=== PATIENT | male | born 1935 | race Caucasian/White ===

== ENCOUNTER 2016-08-10 13:13 | Inpatient (IN) | payer MEDICARE, BC ==
[~2016-08-10] VITALS: Ht 190.5 cm; Wt 88.1 kg
[~2016-08-10 13:13] MED LIST: AMIO200T PO; APIX5TAB PO; ATOR20TA9 PO; ATOR40TA78 PO; FINA5TAB4 PO; HYDR-3240 PO; IBUP200C PO; METO25TA35 PO; METO25TA91 PO; MULT-658 PO; PERICOLACE PO; TERA5CAP3 PO; WARF5TAB PO; WARF5TAB7 PO-COUM
[2016-08-10] MEDS ORDERED: SODIUM CHLORIDE 0.9% 1,000 ML IV ONE (13:22)
[2016-08-10] MEDS ORDERED: SODIUM CHLORIDE 0.9% 1,000ML IVBOLUS ONE (13:30)
[2016-08-10] MEDS ORDERED: SODIUM CHLORIDE FLUSH 10ML SYR IVF ONE (13:30)
[2016-08-10 14:03] LABS: RAPID INFLUENZA A POSITIVE (Negative); RAPID INFLUENZA B Negative (Negative)
[2016-08-10 14:12] LABS: ASPARTATE AMINO TRANSFERASE 26 U/L (15-37); BLOOD UREA NITROGEN 14 mg/dL (7-18)
[2016-08-10 14:18] LABS: IS PT STATUS REG ER OR PRE ER? YES
[2016-08-10] MEDS ORDERED: DOCUSATE 100 MG CAPSULE PO PRN (17:30)
[2016-08-10] MEDS ORDERED: POLYETHYLENE GLYCOL 17 GM PACKET PO PRN (17:30)
[2016-08-10] MEDS ORDERED: ONDANSETRON 2MG/ML, 2ML IVP PRN (17:30)
[2016-08-10] MEDS ORDERED: BISACODYL 10 MG SUPP PR PRN (17:30)
[2016-08-10] MEDS ORDERED: ONDANSETRON ODT 4 MG PO PRN (17:30)
[2016-08-10 18:01] VITALS: BP 153/78
[2016-08-10] MEDS: HEPARIN 5,000 UNITS/ML, 1ML SQ SCH (18:28)
[2016-08-10] MEDS: ACETAMINOPHEN 325 MG TABLET PO PRN (18:28)
[2016-08-10 18:48] VITALS: BP 149/79
[2016-08-10] MEDS: POTASSIUM CHLORIDE 10 MEQ in SODIUM CHLORIDE 0.9% 1,000 ML IV SCH (20:18)
[2016-08-10] MEDS: FINASTERIDE 5 MG TABLET PO SCH (20:18)
[2016-08-10] MEDS: TERAZOSIN 5MG CAPSULE PO SCH (20:19)
[2016-08-10] MEDS: METOPROLOL TARTRATE 25 MG TABLET PO SCH (20:19)
[2016-08-10] MEDS: ATORVASTATIN 20 MG TABLET PO SCH (20:19)
[2016-08-11 01:38] VITALS: BP 125/71
[2016-08-11] MEDS: HEPARIN 5,000 UNITS/ML, 1ML SQ SCH ×3 (01:42→18:08)
[2016-08-11 05:41] LABS: BLOOD UREA NITROGEN 15 mg/dL (7-18)
[2016-08-11] MEDS: POTASSIUM CHLORIDE 10 MEQ in SODIUM CHLORIDE 0.9% 1,000 ML IV SCH ×2 (06:25→20:22)
[2016-08-11] MEDS: ACETAMINOPHEN 325 MG TABLET PO PRN ×3 (06:30→15:59)
[2016-08-11 07:36] VITALS: BP 133/62
[2016-08-11 09:56] VITALS: BP 105/59
[2016-08-11] MEDS: METOPROLOL TARTRATE 25 MG TABLET PO SCH ×2 (09:57→20:22)
[2016-08-11] MEDS: MULTIVITAMIN 1 TABLET PO SCH (09:58)
[2016-08-11 15:20] VITALS: BP 126/72
[2016-08-11] MEDS: CHOLECALCIFEROL 400 UNITS TABLET PO SCH ×3 (15:33→20:21)
[2016-08-11 20:17] VITALS: BP 118/69
[2016-08-11] MEDS: FINASTERIDE 5 MG TABLET PO SCH (20:21)
[2016-08-11] MEDS: ATORVASTATIN 20 MG TABLET PO SCH (20:22)
[2016-08-11] MEDS: TERAZOSIN 5MG CAPSULE PO SCH (20:22)
[2016-08-12] MEDS: HEPARIN 5,000 UNITS/ML, 1ML SQ SCH ×2 (02:04→08:43)
[2016-08-12 03:56] VITALS: BP 134/72
[2016-08-12 08:10] VITALS: BP 119/76
[2016-08-12] MEDS: METOPROLOL TARTRATE 25 MG TABLET PO SCH (08:42)
[2016-08-12] MEDS: CHOLECALCIFEROL 400 UNITS TABLET PO SCH (08:42)
[2016-08-12] MEDS: MULTIVITAMIN 1 TABLET PO SCH (08:43)
[2016-08-12] MEDS: POTASSIUM CHLORIDE 10 MEQ in SODIUM CHLORIDE 0.9% 1,000 ML IV SCH (09:42)
[2016-08-12] MEDS ORDERED: CHOL400T2 PO (11:26)
[2016-08-12 13:42] VITALS: BP 145/69
== END 2016-08-12 14:12 | disposition home or self-care (01) | DRG 194 ==
LOC: ED 14:24 → EDIP 15:51 → 4NOR 17:52
PROVIDERS: ADMIT Internal Medicine; ATTEND Internal Medicine
PROC: 0T9B70Z Drainage of Bladder with Drainage Device, Via Natural or Artificial Opening (ICD-10-PCS; principal; 2016-08-10)
DX: J09.X2 Influenza due to identified novel influenza A virus with other respiratory manifestations (principal); D68.69 Other thrombophilia; E87.1 Hypo-osmolality and hyponatremia; R62.7 Adult failure to thrive; N18.2 Chronic kidney disease, stage 2 (mild); I12.9 Hypertensive chronic kidney disease with stage 1 through stage 4 chronic kidney disease, or unspecified chronic kidney disease; E78.5 Hyperlipidemia, unspecified; J40 Bronchitis, not specified as acute or chronic; I48.91 Unspecified atrial fibrillation; N40.0 Benign prostatic hyperplasia without lower urinary tract symptoms; E55.9 Vitamin D deficiency, unspecified; E78.00 Pure hypercholesterolemia, unspecified; R09.02 Hypoxemia; Z83.3 Family history of diabetes mellitus; Z86.73 Personal history of transient ischemic attack (TIA), and cerebral infarction without residual deficits; Z87.891 Personal history of nicotine dependence
CPT/HCPCS: 36415; 71010; 80048; 80053; 81003; 82306; 83605; 84145; 84484; 85025; 87040; 87400; 93005; 99285; J1644; J3480; J7030

== ENCOUNTER 2017-08-15 13:31 | Observation (INO) | payer MEDICARE, BC ==
[~2017-08-15] VITALS: Ht 188 cm; Wt 85.2 kg
[2017-08-15] MEDS ORDERED: SODIUM CHLORIDE FLUSH 10ML SYR IVF ONE (14:00)
[2017-08-15 14:22] LABS: BASOPHILS # (AUTO) 0.04 x10^3/uL (0-0.1); BASOPHILS % (AUTO) 0 % (0-1); EOSINOPHILS # (AUTO) 0.22 x10^3/uL (0-0.4); EOSINOPHILS % (AUTO) 2 % (1-7); LYMPHOCYTES # (AUTO) 1.76 x10^3/uL (1-3.4); LYMPHOCYTES % (AUTO) 18 % (22-44); MD NO; MEAN CORPUSCULAR HEMOGLOBIN 31.3 pg (27.5-34.5); MEAN CORPUSCULAR HGB CONC 33.9 g/dL (33.2-36.2); MEAN CORPUSCULAR VOLUME 92.5 fL (81-97); MEAN PLATELET VOLUME 7.9 fL (7.4-10.4); MONOCYTES # (AUTO) 0.88 x10^3/uL (0.2-0.8); MONOCYTES % (AUTO) 9 % (2-9); NEUTROPHILS # (AUTO) 6.68 x10^3/uL (1.8-6.8); NEUTROPHILS % (AUTO) 70 % (42-75); PLATELET COUNT 199 x10^3/uL (130-400); RED BLOOD COUNT 5.23 x10^6/uL (4.38-5.82); RED CELL DISTRIBUTION WIDTH 12.9 % (9.4-14.8)
[2017-08-15 14:33] LABS: ALANINE AMINOTRANSFERASE 27 U/L (12-78); ALBUMIN 3.5 g/dL (3.4-5.0); ANION GAP 4 mmol/L (5-15); CALCIUM 8.8 mg/dL (8.5-10.1); CHLORIDE 110 mmol/L (98-107); CREATININE 1.01 mg/dL (0.7-1.3)
[2017-08-15 14:36] LABS: ALKALINE PHOSPHATASE 77 U/L (45-117); BILIRUBIN,TOTAL 1.1 mg/dL (0.2-1.0); TOTAL PROTEIN 6.8 g/dL (6.4-8.2)
[2017-08-15 14:43] LABS: INTERNATIONAL NORMALIZED RATIO 1.16 (0.93-1.1)
[2017-08-15] MEDS ORDERED: GADOBUTROL 10 MMOL/10 ML PFS ONE (15:31)
[2017-08-15] MEDS ORDERED: ACETAMINOPHEN 650 MG/20.3 ML UDC PO PRN (17:30)
[2017-08-15] MEDS ORDERED: ONDANSETRON 4 MG TABLET PO PRN (17:30)
[2017-08-15] MEDS ORDERED: LABETALOL 5MG/ML, 20ML IV PRN (17:30)
[2017-08-15] MEDS ORDERED: ONDANSETRON 2MG/ML, 2ML IVPush PRN (17:30)
[2017-08-15 18:15] VITALS: BP 147/91
[2017-08-15 19:08] VITALS: BP 148/84
[2017-08-15] MEDS ORDERED: PERICOLACE PO SCH (21:00)
[2017-08-15 21:19] VITALS: BP 138/70
[2017-08-15] MEDS: DOCUSATE 100 MG CAPSULE PO SCH (21:19)
[2017-08-15] MEDS: ATORVASTATIN 20 MG TABLET PO SCH (21:20)
[2017-08-15] MEDS: FINASTERIDE 5 MG TABLET PO SCH (21:20)
[2017-08-15] MEDS: TERAZOSIN 5MG CAPSULE PO SCH (21:20)
[2017-08-15] MEDS: METOPROLOL TARTRATE 25 MG TABLET PO SCH (21:20)
[2017-08-15 22:12] VITALS: BP 142/75
[2017-08-16 00:57] VITALS: BP 162/75
[2017-08-16 02:13] VITALS: BP 152/84
[2017-08-16 05:50] LABS: BASOPHILS # (AUTO) 0.03 x10^3/uL (0-0.1); BASOPHILS % (AUTO) 0 % (0-1); EOSINOPHILS # (AUTO) 0.31 x10^3/uL (0-0.4); EOSINOPHILS % (AUTO) 3 % (1-7); LYMPHOCYTES # (AUTO) 2.06 x10^3/uL (1-3.4); LYMPHOCYTES % (AUTO) 22 % (22-44); MD NO; MEAN CORPUSCULAR HEMOGLOBIN 31.3 pg (27.5-34.5); MEAN CORPUSCULAR HGB CONC 33.8 g/dL (33.2-36.2); MEAN CORPUSCULAR VOLUME 92.8 fL (81-97); MEAN PLATELET VOLUME 8.3 fL (7.4-10.4); MONOCYTES # (AUTO) 0.89 x10^3/uL (0.2-0.8); MONOCYTES % (AUTO) 10 % (2-9); NEUTROPHILS # (AUTO) 6.03 x10^3/uL (1.8-6.8); NEUTROPHILS % (AUTO) 65 % (42-75); PLATELET COUNT 191 x10^3/uL (130-400); RED BLOOD COUNT 5.08 x10^6/uL (4.38-5.82); RED CELL DISTRIBUTION WIDTH 12.7 % (9.4-14.8)
[2017-08-16 05:55] LABS: ANION GAP 5 mmol/L (5-15); CALCIUM 8.6 mg/dL (8.5-10.1); CHLORIDE 108 mmol/L (98-107); CREATININE 0.92 mg/dL (0.7-1.3)
[2017-08-16 06:39] VITALS: BP 156/79
[2017-08-16] MEDS: DOCUSATE 100 MG CAPSULE PO SCH ×2 (08:09→21:00)
[2017-08-16] MEDS: METOPROLOL TARTRATE 25 MG TABLET PO SCH ×2 (08:10→21:22)
[2017-08-16] MEDS: MULTIVITAMIN 1 TABLET PO SCH (08:10)
[2017-08-16] MEDS: OXYBUTYNIN CHLORIDE 5 MG TABLET PO SCH (08:10)
[2017-08-16] MEDS ORDERED: METOPROLOL TARTRATE 25 MG TABLET PO SCH (09:00)
[2017-08-16 12:34] VITALS: BP 102/71
[2017-08-16 20:10] VITALS: BP 154/87
[2017-08-16] MEDS: ATORVASTATIN 20 MG TABLET PO SCH (21:22)
[2017-08-16] MEDS: FINASTERIDE 5 MG TABLET PO SCH (21:22)
[2017-08-16] MEDS: TERAZOSIN 5MG CAPSULE PO SCH (21:22)
[2017-08-17 02:47] VITALS: BP 130/78
[2017-08-17 06:11] LABS: BASOPHILS # (AUTO) 0.03 x10^3/uL (0-0.1); BASOPHILS % (AUTO) 0 % (0-1); EOSINOPHILS # (AUTO) 0.34 x10^3/uL (0-0.4); EOSINOPHILS % (AUTO) 3 % (1-7); LYMPHOCYTES # (AUTO) 2.02 x10^3/uL (1-3.4); LYMPHOCYTES % (AUTO) 20 % (22-44); MD NO; MEAN CORPUSCULAR HEMOGLOBIN 31.3 pg (27.5-34.5); MEAN CORPUSCULAR HGB CONC 33.6 g/dL (33.2-36.2); MEAN CORPUSCULAR VOLUME 93.1 fL (81-97); MEAN PLATELET VOLUME 7.9 fL (7.4-10.4); MONOCYTES # (AUTO) 1.01 x10^3/uL (0.2-0.8); MONOCYTES % (AUTO) 10 % (2-9); NEUTROPHILS # (AUTO) 6.91 x10^3/uL (1.8-6.8); NEUTROPHILS % (AUTO) 67 % (42-75); PLATELET COUNT 194 x10^3/uL (130-400); RED BLOOD COUNT 5.01 x10^6/uL (4.38-5.82); RED CELL DISTRIBUTION WIDTH 12.7 % (9.4-14.8)
[2017-08-17 08:00] VITALS: BP 121/74
[2017-08-17] MEDS: DOCUSATE 100 MG CAPSULE PO SCH (09:00)
[2017-08-17] MEDS: MULTIVITAMIN 1 TABLET PO SCH (09:18)
[2017-08-17] MEDS: OXYBUTYNIN CHLORIDE 5 MG TABLET PO SCH (09:18)
[2017-08-17] MEDS: METOPROLOL TARTRATE 25 MG TABLET PO SCH (09:19)
== END 2017-08-17 12:27 | disposition home or self-care (01) ==
LOC: ED 14:34 → INTOOBSV 16:49 → EDIP 16:49 → 4EST 18:10
PROVIDERS: ADMIT Internal Medicine; ATTEND Internal Medicine
DX: I61.9 Nontraumatic intracerebral hemorrhage, unspecified (principal); R53.81 Other malaise; I48.0 Paroxysmal atrial fibrillation; I12.9 Hypertensive chronic kidney disease with stage 1 through stage 4 chronic kidney disease, or unspecified chronic kidney disease; N18.9 Chronic kidney disease, unspecified; E78.5 Hyperlipidemia, unspecified; E78.00 Pure hypercholesterolemia, unspecified; N40.0 Benign prostatic hyperplasia without lower urinary tract symptoms; G45.9 Transient cerebral ischemic attack, unspecified
CPT/HCPCS: 36415; 70450; 70553; 80048; 80053; 85025; 85610; 85730; 92610; 93005; 97162; 97166; 99285; A9585; G0378; G8978; G8979; G8980

== ENCOUNTER → 2017-08-15 | Outpatient (CLI) | payer MEDICARE, BC ==
[~2017-08-15] MED LIST changes: +CHOL400T2 PO; -IBUP200C PO; +IBUP200C5 PO; +OXYB5TAB7 PO; +WARF-36 PO-COUM; -WARF5TAB7 PO-COUM
== END | disposition home or self-care (01) ==
LOC: RAD 11:29
PROVIDERS: ATTEND Internal Medicine Cardiovascular Disease
DX: I60.9 Nontraumatic subarachnoid hemorrhage, unspecified (principal); G45.9 Transient cerebral ischemic attack, unspecified
CPT/HCPCS: 70450

== ENCOUNTER → 2017-09-08 | Outpatient (CLI) | payer MEDICARE, BC | END | disposition home or self-care (01) | LOC: CARD 12:02 | PROVIDERS: ATTEND Psychiatry & Neurology Neurology | DX: I61.1 Nontraumatic intracerebral hemorrhage in hemisphere, cortical (principal) | CPT/HCPCS: 95819 ==

== ENCOUNTER → 2017-09-12 | Outpatient (CLI) | payer MEDICARE, BC | END | disposition home or self-care (01) | LOC: CFH 07:00 | PROVIDERS: ATTEND Psychiatry & Neurology Neurology | DX: I67.2 Cerebral atherosclerosis (principal); I61.1 Nontraumatic intracerebral hemorrhage in hemisphere, cortical | CPT/HCPCS: 70544 ==

== ENCOUNTER 2017-09-16 13:47 | Observation (INO) | payer MEDICARE, BC ==
[~2017-09-16] VITALS: Ht 190.5 cm; Wt 84.2 kg
[2017-09-16 14:25] LABS: BASOPHILS # (AUTO) 0.02 x10^3/uL (0-0.1); BASOPHILS % (AUTO) 0 % (0-1); EOSINOPHILS # (AUTO) 0.25 x10^3/uL (0-0.4); EOSINOPHILS % (AUTO) 3 % (1-7); LYMPHOCYTES # (AUTO) 1.56 x10^3/uL (1-3.4); LYMPHOCYTES % (AUTO) 18 % (22-44); MD NO; MEAN CORPUSCULAR HEMOGLOBIN 31.1 pg (27.5-34.5); MEAN CORPUSCULAR HGB CONC 33.9 g/dL (33.2-36.2); MEAN CORPUSCULAR VOLUME 91.6 fL (81-97); MEAN PLATELET VOLUME 7.8 fL (7.4-10.4); MONOCYTES # (AUTO) 0.71 x10^3/uL (0.2-0.8); MONOCYTES % (AUTO) 8 % (2-9); NEUTROPHILS # (AUTO) 6.32 x10^3/uL (1.8-6.8); NEUTROPHILS % (AUTO) 71 % (42-75); PLATELET COUNT 189 x10^3/uL (130-400); RED BLOOD COUNT 4.93 x10^6/uL (4.38-5.82); RED CELL DISTRIBUTION WIDTH 12.9 % (9.4-14.8)
[2017-09-16 14:35] LABS: INTERNATIONAL NORMALIZED RATIO 1.17 (0.93-1.1); PROTHROMBIN TIME 12.1 Seconds (9.6-11.5)
[2017-09-16 14:36] LABS: ALBUMIN 3.4 g/dL (3.4-5.0); ANION GAP 7 mmol/L (5-15); CALCIUM 8.5 mg/dL (8.5-10.1); CHLORIDE 108 mmol/L (98-107); CREATININE 1.03 mg/dL (0.7-1.3)
[2017-09-16 14:40] LABS: TROPONIN I < 0.015 ng/mL (0.000-0.045)
[2017-09-16] MEDS ORDERED: TERA2CAP3 PO (16:20)
[2017-09-16] MEDS ORDERED: OXYB10TA PO (16:20)
[2017-09-16] MEDS ORDERED: SERT50TA PO (16:21)
[2017-09-16 17:10] LABS: MICROSCOPIC NOT IND
[2017-09-16 18:57] VITALS: BP 168/94
[2017-09-16 20:18] VITALS: BP 161/79
[2017-09-16] MEDS: FINASTERIDE 5 MG TABLET PO SCH (20:18)
[2017-09-16] MEDS: ATORVASTATIN 80 MG TABLET PO SCH (20:18)
[2017-09-16] MEDS: OXYBUTYNIN CHLORIDE 5 MG TABLET PO SCH (20:18)
[2017-09-16] MEDS: TERAZOSIN 2MG CAPSULE PO SCH (20:19)
[2017-09-16] MEDS ORDERED: ATORVASTATIN 20 MG TABLET PO SCH (21:00)
[2017-09-17 02:43] VITALS: BP 127/79
[2017-09-17 04:40] VITALS: BP 168/94
[2017-09-17 07:00] VITALS: BP 157/80
[2017-09-17] MEDS: SERTRALINE 50MG TABLET PO SCH (09:03)
[2017-09-17] MEDS: MULTIVITAMIN 1 TABLET PO SCH (09:03)
[2017-09-17] MEDS: METOPROLOL TARTRATE 25 MG TABLET PO SCH (09:04)
[2017-09-17 15:05] VITALS: BP 156/79
[2017-09-17 20:01] VITALS: BP 155/81
[2017-09-17] MEDS: ATORVASTATIN 80 MG TABLET PO SCH (20:43)
[2017-09-17] MEDS: OXYBUTYNIN CHLORIDE 5 MG TABLET PO SCH (20:43)
[2017-09-17] MEDS: FINASTERIDE 5 MG TABLET PO SCH (20:43)
[2017-09-17] MEDS: TERAZOSIN 2MG CAPSULE PO SCH (20:44)
[2017-09-18 02:00] VITALS: BP 130/80
[2017-09-18 06:49] VITALS: BP 140/79
[2017-09-18] MEDS: METOPROLOL TARTRATE 25 MG TABLET PO SCH (07:42)
[2017-09-18] MEDS: MULTIVITAMIN 1 TABLET PO SCH (07:43)
[2017-09-18] MEDS: SERTRALINE 50MG TABLET PO SCH (07:43)
== END 2017-09-18 11:32 | disposition home or self-care (01) ==
LOC: ED 16:13 → EDIP 17:08 → 4WST 18:37 → DCLOUNGE 09-18 11:12
PROVIDERS: ADMIT Internal Medicine Pulmonary Disease; ATTEND Internal Medicine Pulmonary Disease
DX: G45.9 Transient cerebral ischemic attack, unspecified (principal); I48.0 Paroxysmal atrial fibrillation; I12.9 Hypertensive chronic kidney disease with stage 1 through stage 4 chronic kidney disease, or unspecified chronic kidney disease; N18.9 Chronic kidney disease, unspecified; E78.5 Hyperlipidemia, unspecified; N40.0 Benign prostatic hyperplasia without lower urinary tract symptoms; Z83.3 Family history of diabetes mellitus; Z86.73 Personal history of transient ischemic attack (TIA), and cerebral infarction without residual deficits; Z91.81 History of falling
CPT/HCPCS: 36415; 70450; 80048; 81003; 82040; 84484; 85025; 85610; 85730; 92507; 92523; 93005; 93306; 93880; 97162; 97165; G0378; G8978; G8979; G8980

== ENCOUNTER 2018-02-13 15:47 | Inpatient (IN) | payer MEDICARE, BC ==
[~2018-02-13] VITALS: Ht 190.5 cm; Wt 88.3 kg
[~2018-02-13 15:47] MED LIST changes: +AMATIZA PO; +DONE10TA14 PO; +IBUP-1623 PO; -IBUP200C5 PO; +OXYB10TA PO; +SERT50TA PO; +TAMS0.4C2 PO; +TERA2CAP3 PO
[2018-02-13 16:17] LABS: BASOPHILS # (AUTO) 0.06 x10^3/uL (0-0.1); BASOPHILS % (AUTO) 1 % (0-1); EOSINOPHILS # (AUTO) 0.21 x10^3/uL (0-0.4); EOSINOPHILS % (AUTO) 2 % (1-7); LYMPHOCYTES # (AUTO) 1.85 x10^3/uL (1-3.4); LYMPHOCYTES % (AUTO) 20 % (22-44); MD NO; MEAN CORPUSCULAR HEMOGLOBIN 31.8 pg (27.5-34.5); MEAN CORPUSCULAR HGB CONC 34.2 g/dL (33.2-36.2); MONOCYTES # (AUTO) 0.64 x10^3/uL (0.2-0.8); MONOCYTES % (AUTO) 7 % (2-9); NEUTROPHILS # (AUTO) 6.73 x10^3/uL (1.8-6.8); NEUTROPHILS % (AUTO) 71 % (42-75); PLATELET COUNT 192 x10^3/uL (130-400); RED BLOOD COUNT 5.09 x10^6/uL (4.38-5.82); RED CELL DISTRIBUTION WIDTH 12.9 % (9.4-14.8)
[2018-02-13 16:28] LABS: INTERNATIONAL NORMALIZED RATIO 1.17 (0.93-1.1); PROTHROMBIN TIME 12.1 Seconds (9.6-11.5)
[2018-02-13] MEDS ORDERED: LEVETIRACETAM 500 MG in SODIUM CHLORIDE 0.9% 100 ML IV ONE (17:00)
[2018-02-13] MEDS ORDERED: SODIUM CHLORIDE 0.9% 1,000 ML IV SCH (17:15)
[2018-02-13] MEDS ORDERED: BISACODYL 10 MG SUPP PR PRN (17:30)
[2018-02-13] MEDS ORDERED: POLYETHYLENE GLYCOL 17 GM PACKET PO PRN (17:30)
[2018-02-13] MEDS ORDERED: ENALAPRILAT 1.25 MG/ML, 2ML IV PRN (17:30)
[2018-02-13] MEDS ORDERED: ONDANSETRON ODT 4 MG PO PRN (17:30)
[2018-02-13] MEDS ORDERED: ONDANSETRON 2MG/ML, 2ML IVPush PRN (17:30)
[2018-02-13] MEDS ORDERED: DOCUSATE 100 MG CAPSULE PO PRN (17:30)
[2018-02-13] MEDS ORDERED: ACETAMINOPHEN 325 MG TABLET PO PRN (17:30)
[2018-02-13 18:12] LABS: TROPONIN I < 0.015 ng/mL (0.000-0.045)
[2018-02-13] MEDS ORDERED: GADOBUTROL 10 MMOL/10 ML PFS ONE (19:29)
[2018-02-13 19:43] LABS: MICROSCOPIC NOT IND
[2018-02-13 19:45] VITALS: BP 138/72
[2018-02-13 19:47] LABS: CULTURE INDICATED? NO
[2018-02-13] MEDS ORDERED: FINASTERIDE 5 MG TABLET PO SCH (21:00)
[2018-02-13] MEDS ORDERED: ATORVASTATIN 20 MG TABLET PO SCH (21:00)
[2018-02-13] MEDS ORDERED: TAMSULOSIN 0.4 MG CAP.ER.24H PO SCH (21:00)
[2018-02-13] MEDS: LEVETIRACETAM 500 MG in SODIUM CHLORIDE 0.9% 100 ML IV SCH ×2 (21:00→21:11)
[2018-02-13] MEDS: AMATIZA PO SCH (21:00)
[2018-02-13] MEDS ORDERED: TERAZOSIN 2MG CAPSULE PO SCH (21:00)
[2018-02-13] MEDS: LEVETIRACETAM 500 MG TABLET PO SCH (21:12)
[2018-02-14 02:14] VITALS: BP 128/75
[2018-02-14 04:45] LABS: BASOPHILS # (AUTO) 0.03 x10^3/uL (0-0.1); BASOPHILS % (AUTO) 0 % (0-1); EOSINOPHILS # (AUTO) 0.36 x10^3/uL (0-0.4); EOSINOPHILS % (AUTO) 4 % (1-7); LYMPHOCYTES # (AUTO) 2.01 x10^3/uL (1-3.4); LYMPHOCYTES % (AUTO) 21 % (22-44); MD NO; MEAN CORPUSCULAR HEMOGLOBIN 31.7 pg (27.5-34.5); MEAN CORPUSCULAR HGB CONC 34.3 g/dL (33.2-36.2); MEAN CORPUSCULAR VOLUME 92.2 fL (81-97); MEAN PLATELET VOLUME 8.3 fL (7.4-10.4); MONOCYTES # (AUTO) 0.97 x10^3/uL (0.2-0.8); MONOCYTES % (AUTO) 10 % (2-9); NEUTROPHILS # (AUTO) 6.06 x10^3/uL (1.8-6.8); NEUTROPHILS % (AUTO) 64 % (42-75); PLATELET COUNT 187 x10^3/uL (130-400); RED CELL DISTRIBUTION WIDTH 12.7 % (9.4-14.8)
[2018-02-14 04:59] LABS: ALBUMIN 2.8 g/dL (3.4-5.0); ANION GAP 8 mmol/L (5-15); CALCIUM 8.3 mg/dL (8.5-10.1); CHLORIDE 111 mmol/L (98-107)
[2018-02-14 05:08] LABS: ALANINE AMINOTRANSFERASE 38 U/L (12-78); ALKALINE PHOSPHATASE 83 U/L (45-117); BILIRUBIN,TOTAL 0.3 mg/dL (0.2-1.0); CHOL/HDL RATIO 2.3; CHOLESTEROL, TOTAL 79 mg/dL (140-239); CREATININE 0.94 mg/dL (0.7-1.3); HDL CHOL % 44 % (26-37); HDL CHOLESTEROL (DIRECT) 35 mg/dL (40-60); LDL CHOLESTEROL,CALCULATED 28 mg/dL (54-169); LDL/HDL RATIO 0.8 (0.5-3.0); TOTAL PROTEIN 5.5 g/dL (6.4-8.2); TRIGLYCERIDES 80 mg/dL (50-200); VLDL CHOLESTEROL 16 mg/dL (0-25)
[2018-02-14] MEDS ORDERED: METOPROLOL SUCCINATE 25 MG TAB.ER.24H PO SCH (06:00)
[2018-02-14 07:28] VITALS: BP 133/79
[2018-02-14] MEDS: AMATIZA PO SCH (08:56)
[2018-02-14] MEDS ORDERED: DONEPEZIL 10 MG TABLET PO SCH (09:00)
[2018-02-14] MEDS ORDERED: SERTRALINE 50MG TABLET PO SCH (09:00)
[2018-02-14] MEDS ORDERED: ASPIRIN 81 MG TABLET CHEW PO/NG SCH (09:00)
[2018-02-14] MEDS ORDERED: MULTIVITAMIN 1 TABLET PO SCH (09:00)
[2018-02-14] MEDS: LEVETIRACETAM 500 MG in SODIUM CHLORIDE 0.9% 100 ML IV SCH (09:11)
[2018-02-14] MEDS: LEVETIRACETAM 500 MG TABLET PO SCH (09:12)
[2018-02-14 13:07] VITALS: BP 151/84
[2018-02-14] MEDS ORDERED: LEVE500T53 PO (13:15)
[2018-02-14] MEDS ORDERED: METO25TA91 PO (13:15)
== END 2018-02-14 15:25 | disposition home or self-care (01) | DRG 92 ==
LOC: ED 16:33 → EDIP 16:34 → ED 17:11 → 4WST 17:47
PROVIDERS: ADMIT Internal Medicine; ATTEND Internal Medicine
PROC: 4A00X4Z Measurement of Central Nervous Electrical Activity, External Approach (ICD-10-PCS; principal; 2018-02-14)
DX: R47.01 Aphasia (principal); I69.351 Hemiplegia and hemiparesis following cerebral infarction affecting right dominant side; E44.1 Mild protein-calorie malnutrition; R56.9 Unspecified convulsions; G83.84 Todd's paralysis (postepileptic); N18.2 Chronic kidney disease, stage 2 (mild); N40.0 Benign prostatic hyperplasia without lower urinary tract symptoms; Z96.641 Presence of right artificial hip joint; Z91.81 History of falling; Z83.3 Family history of diabetes mellitus; Z87.891 Personal history of nicotine dependence; Z82.49 Family history of ischemic heart disease and other diseases of the circulatory system; Z79.82 Long term (current) use of aspirin; K59.00 Constipation, unspecified; I48.91 Unspecified atrial fibrillation; I34.0 Nonrheumatic mitral (valve) insufficiency; I34.1 Nonrheumatic mitral (valve) prolapse; I12.9 Hypertensive chronic kidney disease with stage 1 through stage 4 chronic kidney disease, or unspecified chronic kidney disease; E78.5 Hyperlipidemia, unspecified; Z79.899 Other long term (current) drug therapy
CPT/HCPCS: 36415; 70450; 70553; 80047; 80053; 80061; 81003; 82962; 83735; 84100; 84443; 84484; 85025; 85610; 85730; 93005; 93306; 95819; 99291; A9585; G0378; J1953; J7030

== ENCOUNTER 2018-04-01 15:16 | Inpatient (IN) | payer MEDICARE, BC ==
[~2018-04-01] VITALS: Ht 190.5 cm; Wt 88.1 kg
[~2018-04-01 15:16] MED LIST changes: +LEVE500T53 PO
[2018-04-01] MEDS ORDERED: ONDANSETRON ODT 4 MG ONE ×2 (15:30→16:38)
[2018-04-01] MEDS ORDERED: ONDANSETRON ODT 4 MG PO ONE ×2 (15:30→17:00)
[2018-04-01] MEDS ORDERED: MORPHINE SULFATE 4 MG/ML, 1ML ONE ×2 (15:30→15:45)
[2018-04-01] MEDS ORDERED: SODIUM CHLORIDE FLUSH 10ML SYR IVF ONE (15:30)
[2018-04-01] MEDS: MORPHINE SULFATE 4 MG/ML, 1ML IVPush PRN ×2 (15:34→15:48)
[2018-04-01 15:44] LABS: BASOPHILS # (AUTO) 0.07 x10^3/uL (0-0.1); BASOPHILS % (AUTO) 1 % (0-1); EOSINOPHILS # (AUTO) 0.34 x10^3/uL (0-0.4); EOSINOPHILS % (AUTO) 4 % (1-7); LYMPHOCYTES # (AUTO) 2.43 x10^3/uL (1-3.4); LYMPHOCYTES % (AUTO) 29 % (22-44); MD NO; MEAN CORPUSCULAR HEMOGLOBIN 30.9 pg (27.5-34.5); MEAN CORPUSCULAR HGB CONC 33.5 g/dL (33.2-36.2); MEAN CORPUSCULAR VOLUME 92.4 fL (81-97); MONOCYTES # (AUTO) 0.88 x10^3/uL (0.2-0.8); MONOCYTES % (AUTO) 11 % (2-9); NEUTROPHILS # (AUTO) 4.66 x10^3/uL (1.8-6.8); NEUTROPHILS % (AUTO) 56 % (42-75); PLATELET COUNT 188 x10^3/uL (130-400); RED BLOOD COUNT 5.23 x10^6/uL (4.38-5.82); RED CELL DISTRIBUTION WIDTH 12.7 % (9.4-14.8)
[2018-04-01 15:52] LABS: ALBUMIN 3.4 g/dL (3.4-5.0); ANION GAP 10 mmol/L (5-15); CALCIUM 8.9 mg/dL (8.5-10.1); CHLORIDE 106 mmol/L (98-107); CREATININE 1.07 mg/dL (0.7-1.3); INTERNATIONAL NORMALIZED RATIO 1.15 (0.93-1.1); PROTHROMBIN TIME 11.9 Seconds (9.6-11.5)
[2018-04-01] MEDS ORDERED: HYDROmorphone 4MG TABLET PO PRN (16:30)
[2018-04-01] MEDS ORDERED: HYDROmorphone 2 MG/ML, 1ML ONE ×2 (16:38→20:02)
[2018-04-01] MEDS ORDERED: HYDROmorphone 2 MG/ML, 1ML IV ONE (17:00)
[2018-04-01] MEDS ORDERED: ETOMIDATE 20 MG/10 ML ONE (17:46)
[2018-04-01] MEDS ORDERED: ETOMIDATE 20 MG/10 ML IVPush ONE (18:00)
[2018-04-01] MEDS ORDERED: HYDROmorphone 1 MG/ML, 1ML IV ONE (20:00)
[2018-04-01 20:50] VITALS: BP 138/64
[2018-04-01] MEDS ORDERED: hydrALAzine 20 MG/ML, 1ML IVPush PRN (23:00)
[2018-04-01] MEDS ORDERED: POLYETHYLENE GLYCOL 17 GM PACKET PO PRN (23:00)
[2018-04-01] MEDS ORDERED: BISACODYL 10 MG SUPP PR PRN (23:00)
[2018-04-01] MEDS ORDERED: ONDANSETRON 2MG/ML, 2ML IVPush PRN (23:00)
[2018-04-01] MEDS ORDERED: DOCUSATE 100 MG CAPSULE PO PRN (23:00)
[2018-04-01] MEDS ORDERED: LABETALOL 5MG/ML, 20ML IVPush PRN (23:00)
[2018-04-01] MEDS ORDERED: GABAPENTIN 300 MG CAPSULE PO PRN (23:00)
[2018-04-01] MEDS ORDERED: ONDANSETRON ODT 4 MG PO PRN (23:00)
[2018-04-01] MEDS ORDERED: PROMETHAZINE 25 MG/ML, 1ML IM PRN (23:00)
[2018-04-01] MEDS: morphine SULFATE 10 MG/ML, 1ML IVPush PRN (23:20)
[2018-04-01] MEDS: SODIUM CHLORIDE 0.9% 1,000 ML IV SCH (23:20)
[2018-04-01 23:27] LABS: HEMOGLOBIN A1C 6.5 % (4.2-6.3)
[2018-04-01 23:28] VITALS: BP 121/68
[2018-04-01 23:51] LABS: FREE T4 (FREE THYROXINE) 0.95 ng/dL (0.76-1.46); THYROID STIMULATING HORMONE 5.11 mIU/L (0.358-3.740)
[2018-04-01] MEDS: ATORVASTATIN 20 MG TABLET PO SCH (23:59)
[2018-04-01] MEDS: TAMSULOSIN 0.4 MG CAP.ER.24H PO SCH (23:59)
[2018-04-01] MEDS: FINASTERIDE 5 MG TABLET PO SCH (23:59)
[2018-04-01] MEDS: TERAZOSIN 2MG CAPSULE PO SCH (23:59)
[2018-04-01] MEDS: LEVETIRACETAM 500 MG TABLET PO SCH (23:59)
[2018-04-02] MEDS: morphine SULFATE 10 MG/ML, 1ML IVPush PRN ×3 (02:43→08:50)
[2018-04-02 03:06] VITALS: BP 131/74
[2018-04-02 05:31] LABS: ALANINE AMINOTRANSFERASE 35 U/L (12-78); ALBUMIN 3.3 g/dL (3.4-5.0); ANION GAP 4 mmol/L (5-15); CALCIUM 8.5 mg/dL (8.5-10.1); CHLORIDE 107 mmol/L (98-107)
[2018-04-02 05:34] LABS: ALKALINE PHOSPHATASE 82 U/L (45-117); BILIRUBIN,TOTAL 0.9 mg/dL (0.2-1.0); CHOL/HDL RATIO 2.5; CHOLESTEROL, TOTAL 108 mg/dL (140-239); HDL CHOL % 40 % (26-37); HDL CHOLESTEROL (DIRECT) 43 mg/dL (40-60); LDL CHOLESTEROL,CALCULATED 52 mg/dL (54-169); LDL/HDL RATIO 1.2 (0.5-3.0); TOTAL PROTEIN 6.1 g/dL (6.4-8.2); TRIGLYCERIDES 65 mg/dL (50-200); VLDL CHOLESTEROL 13 mg/dL (0-25)
[2018-04-02 05:40] LABS: BASOPHILS # (AUTO) 0.03 x10^3/uL (0-0.1); BASOPHILS % (AUTO) 0 % (0-1); EOSINOPHILS # (AUTO) 0.05 x10^3/uL (0-0.4); EOSINOPHILS % (AUTO) 0 % (1-7); LYMPHOCYTES # (AUTO) 1.43 x10^3/uL (1-3.4); LYMPHOCYTES % (AUTO) 12 % (22-44); MD NO; MEAN CORPUSCULAR HEMOGLOBIN 31.8 pg (27.5-34.5); MEAN CORPUSCULAR HGB CONC 34.3 g/dL (33.2-36.2); MEAN CORPUSCULAR VOLUME 92.7 fL (81-97); MEAN PLATELET VOLUME 8.2 fL (7.4-10.4); MONOCYTES # (AUTO) 1.32 x10^3/uL (0.2-0.8); MONOCYTES % (AUTO) 11 % (2-9); NEUTROPHILS # (AUTO) 9.23 x10^3/uL (1.8-6.8); NEUTROPHILS % (AUTO) 77 % (42-75); PLATELET COUNT 167 x10^3/uL (130-400); RED BLOOD COUNT 4.92 x10^6/uL (4.38-5.82)
[2018-04-02] MEDS: METOPROLOL SUCCINATE 25 MG TAB.ER.24H PO SCH (06:00)
[2018-04-02 07:25] VITALS: BP 142/73
[2018-04-02 08:18] LABS: HCT (SEDRATE) 46.4 % (39.2-51.8)
[2018-04-02] MEDS: SODIUM CHLORIDE 0.9% 1,000 ML IV SCH (08:55)
[2018-04-02] MEDS: SERTRALINE 50MG TABLET PO SCH ×2 (09:00→11:42)
[2018-04-02] MEDS: MULTIVITAMIN 1 TABLET PO SCH ×2 (09:00→11:41)
[2018-04-02] MEDS: LEVETIRACETAM 500 MG TABLET PO SCH ×2 (09:00→21:01)
[2018-04-02] MEDS: DONEPEZIL 10 MG TABLET PO SCH (09:00)
[2018-04-02 09:56] LABS: MICROSCOPIC NOT IND
[2018-04-02 10:04] LABS: CULTURE INDICATED? NO
[2018-04-02] MEDS: HYDROcodone/APAP 5/325 TABLET PO PRN (11:42)
[2018-04-02 14:13] VITALS: BP 113/64
[2018-04-02 19:00] VITALS: BP 118/65
[2018-04-02] MEDS: FINASTERIDE 5 MG TABLET PO SCH (21:00)
[2018-04-02] MEDS: ATORVASTATIN 20 MG TABLET PO SCH (21:00)
[2018-04-02] MEDS: OxyconTIN ER 10 MG TAB.ER PO SCH (21:01)
[2018-04-02] MEDS: TAMSULOSIN 0.4 MG CAP.ER.24H PO SCH (21:01)
[2018-04-02] MEDS: TERAZOSIN 2MG CAPSULE PO SCH (21:01)
[2018-04-03 02:31] VITALS: BP 147/71
[2018-04-03] MEDS: METOPROLOL SUCCINATE 25 MG TAB.ER.24H PO SCH (06:00)
[2018-04-03] MEDS ORDERED: FENTANYL PF 250 MCG/5ML ONE (06:33)
[2018-04-03] MEDS ORDERED: OXYcodone 5 MG/5 ML ORAL.SOL UDC PO PRN (07:00)
[2018-04-03] MEDS ORDERED: PROCHLORPERAZINE 5 MG/ML, 2ML IV PRN (07:00)
[2018-04-03] MEDS ORDERED: LABETALOL 5MG/ML, 20ML IV PRN (07:00)
[2018-04-03] MEDS ORDERED: MORPHINE SULFATE 4 MG/ML, 1ML IVPush PRN (07:00)
[2018-04-03] MEDS ORDERED: hydrALAzine 20 MG/ML, 1ML IV PRN (07:00)
[2018-04-03] MEDS ORDERED: ONDANSETRON 2MG/ML, 2ML IV PRN (07:00)
[2018-04-03] MEDS ORDERED: HYDROmorphone 1 MG/ML, 1ML IV PRN (07:00)
[2018-04-03] MEDS ORDERED: ONDANSETRON ODT 8 MG PO PRN (07:00)
[2018-04-03] MEDS ORDERED: ACETAMINOPHEN 325 MG TABLET PO PRN (07:00)
[2018-04-03 07:37] VITALS: BP 127/88
[2018-04-03] MEDS ORDERED: TRANEXAMIC ACID 100 MG/ML, 10ML ONE (07:56)
[2018-04-03] MEDS ORDERED: ERGOCALCIFEROL 50,000 UNIT CAPSULE PO SCH (09:30)
[2018-04-03] MEDS ORDERED: DEXAMETHASONE 4 MG/ML, 1ML ONE (09:37)
[2018-04-03] MEDS ORDERED: ROCURONIUM 10MG/ML,5ML ONE (09:37)
[2018-04-03] MEDS ORDERED: NEOSTIGMINE 1 MG/ML, 10ML ONE (09:37)
[2018-04-03] MEDS ORDERED: PROPOFOL 10 MG/ML, 20ML ONE (09:37)
[2018-04-03] MEDS ORDERED: GLYCOPYRROLATE 0.2MG/1ML, 5ML ONE (09:37)
[2018-04-03] MEDS ORDERED: SUCCINYLCHOLINE 20 MG/ML, 10ML ONE (09:37)
[2018-04-03] MEDS ORDERED: CEFAZOLIN 1,000 MG ONE (09:37)
[2018-04-03] MEDS ORDERED: ONDANSETRON 2MG/ML, 2ML ONE ×2 (09:37→16:05)
[2018-04-03] MEDS ORDERED: FENTANYL PF 100 MCG/2ML ONE (09:53)
[2018-04-03] MEDS: FENTANYL PF 100 MCG/2ML IV PRN ×3 (09:55→10:28)
[2018-04-03] MEDS ORDERED: OXYcodone 5 MG/5 ML ORAL.SOL UDC ONE (10:11)
[2018-04-03] MEDS: CEFAZOLIN 1,000 MG IM SCH ×2 (12:25→21:01)
[2018-04-03] MEDS: OxyconTIN ER 10 MG TAB.ER PO SCH ×2 (12:51→21:09)
[2018-04-03 13:30] VITALS: BP 134/73
[2018-04-03] MEDS: DONEPEZIL 10 MG TABLET PO SCH (14:12)
[2018-04-03] MEDS: LEVETIRACETAM 500 MG TABLET PO SCH ×2 (14:12→21:08)
[2018-04-03 18:39] VITALS: BP 138/74
[2018-04-03] MEDS: FINASTERIDE 5 MG TABLET PO SCH (21:08)
[2018-04-03] MEDS: TAMSULOSIN 0.4 MG CAP.ER.24H PO SCH (21:08)
[2018-04-03] MEDS: ATORVASTATIN 20 MG TABLET PO SCH (21:08)
[2018-04-03] MEDS: TERAZOSIN 2MG CAPSULE PO SCH (21:08)
[2018-04-03] MEDS: ASPIRIN 81 MG TABLET EC PO SCH (21:09)
[2018-04-04 01:07] VITALS: BP 134/72
[2018-04-04] MEDS: CEFAZOLIN 1,000 MG IM SCH ×4 (02:00→17:47)
[2018-04-04 04:53] LABS: ANION GAP 7 mmol/L (5-15); CHLORIDE 106 mmol/L (98-107)
[2018-04-04 04:54] LABS: MEAN CORPUSCULAR HGB CONC 34.5 g/dL (33.2-36.2); MEAN CORPUSCULAR VOLUME 92.7 fL (81-97); MEAN PLATELET VOLUME 8.1 fL (7.4-10.4); PLATELET COUNT 139 x10^3/uL (130-400); RED BLOOD COUNT 3.85 x10^6/uL (4.38-5.82); RED CELL DISTRIBUTION WIDTH 12.5 % (9.4-14.8)
[2018-04-04 04:56] LABS: CALCIUM 8.9 mg/dL (8.5-10.1)
[2018-04-04 05:20] LABS: MD YES
[2018-04-04 05:22] LABS: <PLATELET ESTIMATE> ADEQUATE; <PLT MORPHOLOGY> NORMAL PLT MORPH; <RBC MORPHOLOGY> NORMAL; BAND#(MANUAL) 0.47 x10^3/uL; BANDS%(MANUAL) 3 % (0-7); EOS#(MANUAL) 0.16 x10^3/uL (0.0-0.4); EOS% (MANUAL) 1 % (1-7); LYMPH#(MANUAL) 1.09 x10^3/uL (1-3.4); LYMPHS% (MANUAL) 7 % (22-44); MONOS% (MANUAL) 9 % (2-9); SEG#(MANUAL) 12.48 x10^3/uL (1.8-6.8); SEGS% (MANUAL) 80 % (42-75)
[2018-04-04] MEDS: METOPROLOL SUCCINATE 25 MG TAB.ER.24H PO SCH (05:53)
[2018-04-04 07:25] VITALS: BP 108/68
[2018-04-04] MEDS: MULTIVITAMIN 1 TABLET PO SCH (08:28)
[2018-04-04] MEDS: ASPIRIN 81 MG TABLET EC PO SCH ×2 (08:28→22:41)
[2018-04-04] MEDS: OxyconTIN ER 10 MG TAB.ER PO SCH ×2 (08:28→22:41)
[2018-04-04] MEDS: DONEPEZIL 10 MG TABLET PO SCH (08:28)
[2018-04-04] MEDS: LEVETIRACETAM 500 MG TABLET PO SCH ×2 (08:28→22:41)
[2018-04-04] MEDS: SERTRALINE 50MG TABLET PO SCH (08:28)
[2018-04-04] MEDS: HYDROcodone/APAP 5/325 TABLET PO PRN ×2 (12:24→17:47)
[2018-04-04 14:00] VITALS: BP 109/62
[2018-04-04] MEDS ORDERED: VANCOMYCIN PER PHARMACY MC PRN (19:00)
[2018-04-04] MEDS ORDERED: CEFEPIME 1 GM in DEXTROSE 5% 50 ML IV SCH (19:00)
[2018-04-04 21:25] VITALS: BP 110/68
[2018-04-04] MEDS: ATORVASTATIN 20 MG TABLET PO SCH (22:41)
[2018-04-04] MEDS: TERAZOSIN 2MG CAPSULE PO SCH (22:41)
[2018-04-04] MEDS: TAMSULOSIN 0.4 MG CAP.ER.24H PO SCH (22:41)
[2018-04-04] MEDS: FINASTERIDE 5 MG TABLET PO SCH (22:41)
[2018-04-05 02:18] VITALS: BP 123/66
[2018-04-05 02:23] LABS: MICROSCOPIC AUTO
[2018-04-05 02:24] LABS: CULTURE INDICATED? YES
[2018-04-05 04:39] LABS: MEAN CORPUSCULAR HEMOGLOBIN 31.5 pg (27.5-34.5); MEAN CORPUSCULAR HGB CONC 33.7 g/dL (33.2-36.2); MEAN CORPUSCULAR VOLUME 93.5 fL (81-97); MEAN PLATELET VOLUME 7.8 fL (7.4-10.4); PLATELET COUNT 134 x10^3/uL (130-400); RED BLOOD COUNT 3.72 x10^6/uL (4.38-5.82); RED CELL DISTRIBUTION WIDTH 12.8 % (9.4-14.8)
[2018-04-05 04:40] LABS: ALBUMIN 2.3 g/dL (3.4-5.0); ANION GAP 4 mmol/L (5-15); CALCIUM 8.1 mg/dL (8.5-10.1); CHLORIDE 106 mmol/L (98-107); CREATININE 0.83 mg/dL (0.7-1.3)
[2018-04-05 04:54] LABS: BASOPHILS # (AUTO) 0.03 x10^3/uL (0-0.1); BASOPHILS % (AUTO) 0 % (0-1); EOSINOPHILS # (AUTO) 0.12 x10^3/uL (0-0.4); EOSINOPHILS % (AUTO) 1 % (1-7); LYMPHOCYTES # (AUTO) 1.27 x10^3/uL (1-3.4); LYMPHOCYTES % (AUTO) 12 % (22-44); MD SCAN; MONOCYTES # (AUTO) 1.33 x10^3/uL (0.2-0.8); MONOCYTES % (AUTO) 13 % (2-9); NEUTROPHILS # (AUTO) 7.93 x10^3/uL (1.8-6.8); NEUTROPHILS % (AUTO) 74 % (42-75)
[2018-04-05] MEDS ORDERED: ONDA4TAB13 PO (06:24)
[2018-04-05] MEDS ORDERED: ACET325T14 PO (06:24)
[2018-04-05] MEDS ORDERED: POLY17PO5 PO (06:24)
[2018-04-05] MEDS ORDERED: ASPI-621 PO (06:24)
[2018-04-05] MEDS ORDERED: OXYC10TA47 PO (06:24)
[2018-04-05] MEDS ORDERED: ERGO500017 PO (06:24)
[2018-04-05] MEDS ORDERED: GABA300C10 PO (06:24)
[2018-04-05] MEDS ORDERED: DOCU-131 PO (06:24)
[2018-04-05] MEDS ORDERED: HYDR-3240 PO (06:24)
[2018-04-05] MEDS: METOPROLOL SUCCINATE 25 MG TAB.ER.24H PO SCH (06:37)
[2018-04-05 07:46] VITALS: BP 133/74
[2018-04-05] MEDS: OxyconTIN ER 10 MG TAB.ER PO SCH ×2 (09:00→20:46)
[2018-04-05] MEDS: ASPIRIN 81 MG TABLET EC PO SCH ×2 (09:48→20:45)
[2018-04-05] MEDS: MULTIVITAMIN 1 TABLET PO SCH (09:48)
[2018-04-05] MEDS: DONEPEZIL 10 MG TABLET PO SCH (09:48)
[2018-04-05] MEDS: ACETAMINOPHEN 325 MG TABLET PO PRN ×3 (09:48→20:45)
[2018-04-05] MEDS: LEVETIRACETAM 500 MG TABLET PO SCH ×2 (09:48→20:45)
[2018-04-05] MEDS: SERTRALINE 50MG TABLET PO SCH (09:48)
[2018-04-05 12:25] VITALS: BP 132/74
[2018-04-05 19:22] VITALS: BP 143/76
[2018-04-05] MEDS: FINASTERIDE 5 MG TABLET PO SCH (20:45)
[2018-04-05] MEDS: TAMSULOSIN 0.4 MG CAP.ER.24H PO SCH (20:45)
[2018-04-05] MEDS: TERAZOSIN 2MG CAPSULE PO SCH (20:45)
[2018-04-05] MEDS: ATORVASTATIN 20 MG TABLET PO SCH (20:45)
[2018-04-06] MEDS: ACETAMINOPHEN 325 MG TABLET PO PRN ×2 (01:52→06:19)
[2018-04-06 02:45] VITALS: BP 140/79
[2018-04-06] MEDS: METOPROLOL SUCCINATE 25 MG TAB.ER.24H PO SCH (06:19)
[2018-04-06 06:59] VITALS: BP 153/84
[2018-04-06] MEDS: LEVETIRACETAM 500 MG TABLET PO SCH (08:55)
[2018-04-06] MEDS: ASPIRIN 81 MG TABLET EC PO SCH (08:55)
[2018-04-06] MEDS: SERTRALINE 50MG TABLET PO SCH (08:55)
[2018-04-06] MEDS: OxyconTIN ER 10 MG TAB.ER PO SCH (08:55)
[2018-04-06] MEDS: DONEPEZIL 10 MG TABLET PO SCH (08:55)
[2018-04-06] MEDS: MULTIVITAMIN 1 TABLET PO SCH (08:55)
[2018-04-06 12:37] VITALS: BP 162/81
[2018-04-06] MEDS ORDERED: MAGNESIUM CITRATE 300ML ORAL SOL PO ONE (13:30)
== END 2018-04-06 18:23 | DRG 467 ==
LOC: ED 16:44 → EDIP 19:21 → 4NOR 20:40 → 4WST 04-03 10:59
PROVIDERS: ADMIT Emergency Medicine; ATTEND Internal Medicine
PROC: 0SR901Z Replacement of Right Hip Joint with Metal Synthetic Substitute, Open Approach (ICD-10-PCS; principal; 2018-04-01)
PROC: 0SP90JZ Removal of Synthetic Substitute from Right Hip Joint, Open Approach (ICD-10-PCS; 2018-04-01)
PROC: 0SP909Z Removal of Liner from Right Hip Joint, Open Approach (ICD-10-PCS; 2018-04-01)
PROC: 0SUR09Z Supplement Right Hip Joint, Femoral Surface with Liner, Open Approach (ICD-10-PCS; 2018-04-01)
PROC: 0SW9XJZ Revision of Synthetic Substitute in Right Hip Joint, External Approach (ICD-10-PCS; 2018-04-01)
DX: T84.020A Dislocation of internal right hip prosthesis, initial encounter (principal); I69.351 Hemiplegia and hemiparesis following cerebral infarction affecting right dominant side; E78.00 Pure hypercholesterolemia, unspecified; F32.9 Major depressive disorder, single episode, unspecified; F41.9 Anxiety disorder, unspecified; G40.909 Epilepsy, unspecified, not intractable, without status epilepticus; G83.9 Paralytic syndrome, unspecified; N40.0 Benign prostatic hyperplasia without lower urinary tract symptoms; W18.30XA Fall on same level, unspecified, initial encounter; Y79.2 Prosthetic and other implants, materials and accessory orthopedic devices associated with adverse incidents; Y84.8 Other medical procedures as the cause of abnormal reaction of the patient, or of later complication, without mention of misadventure at the time of the procedure; I10 Essential (primary) hypertension; I48.2 Chronic atrial fibrillation; I69.320 Aphasia following cerebral infarction; Y92.009 Unspecified place in unspecified non-institutional (private) residence as the place of occurrence of the external cause; Z82.49 Family history of ischemic heart disease and other diseases of the circulatory system; Z83.3 Family history of diabetes mellitus; Z87.891 Personal history of nicotine dependence; Z90.49 Acquired absence of other specified parts of digestive tract; Z79.899 Other long term (current) drug therapy
CPT/HCPCS: 36415; 71045; 71250; 72170; 80048; 80053; 80061; 80202; 81001; 81003; 82040; 82306; 82607; 83036; 83735; 84439; 84443; 85025; 85610; 85651; 85730; 86140; 87070; 87075; 87081; 87086; 87102; 87116; 87205; 87206; 93005; 96374; 96375; 99285; C1713; G0378; J0171; J0690; J1100; J1170; J1885; J2405; J2704; J2710; J2795; J3010; J3490; Q0162; C1762; C1776; J0330; J2270; J7030

== ENCOUNTER → 2020-01-06 | Outpatient (CLI) | payer MEDICARE, BC ==
[~2020-01-06] MED LIST changes: +ACET325T14 PO; +ASPI81TA45 PO; +ATOR20TA37 PO; -ATOR20TA9 PO; +DOCU-131 PO; +ERGO500017 PO; +GABA300C10 PO; +ONDA4TAB13 PO; -OXYB10TA PO; +OXYB10TA26 PO; +OXYB5TAB10 PO; -OXYB5TAB7 PO; +OXYC10TA47 PO; +POLY17PO5 PO; +REGADENOSON 0.4 MG/5 ML SYRINGE ONE; -WARF5TAB PO; +WARF5TAB2 PO
== END | disposition home or self-care (01) ==
LOC: CFH 07:16
PROVIDERS: ATTEND Internal Medicine Cardiovascular Disease
DX: I08.0 Rheumatic disorders of both mitral and aortic valves (principal); I10 Essential (primary) hypertension; E78.5 Hyperlipidemia, unspecified; I48.0 Paroxysmal atrial fibrillation
CPT/HCPCS: 93306; J2785

== ENCOUNTER → 2020-01-06 | Outpatient (CLI) | payer MEDICARE, BC | END | disposition home or self-care (01) | LOC: CFH 07:31 | PROVIDERS: ATTEND Internal Medicine Cardiovascular Disease | DX: I34.8 Other nonrheumatic mitral valve disorders (principal); I48.0 Paroxysmal atrial fibrillation; I10 Essential (primary) hypertension | CPT/HCPCS: 78452; 93017; A9502; J2785 ==

== ENCOUNTER → 2020-02-07 | Outpatient (CLI) | payer MEDICARE, BC ==
[~2020-02-07] MED LIST changes: -REGADENOSON 0.4 MG/5 ML SYRINGE ONE
== END | disposition home or self-care (01) ==
LOC: RAD 14:24
PROVIDERS: ATTEND Psychiatry & Neurology Neurology
DX: M51.36 Other intervertebral disc degeneration, lumbar region (principal); M48.062 Spinal stenosis, lumbar region with neurogenic claudication; N28.1 Cyst of kidney, acquired
CPT/HCPCS: 72148

== ENCOUNTER → 2020-03-15 | Outpatient (CLI) | payer MEDICARE, BC | END | disposition home or self-care (01) | LOC: CFH 13:00 | PROVIDERS: ATTEND Psychiatry & Neurology Neurology | DX: M47.813 Spondylosis without myelopathy or radiculopathy, cervicothoracic region (principal); G31.89 Other specified degenerative diseases of nervous system; I69.359 Hemiplegia and hemiparesis following cerebral infarction affecting unspecified side; I67.82 Cerebral ischemia; M48.02 Spinal stenosis, cervical region; G93.89 Other specified disorders of brain; Z91.81 History of falling | CPT/HCPCS: 70553; 72141; A9575 ==

== ENCOUNTER 2020-04-02 22:30 | Emergency (ER) | payer MEDICARE, BC ==
[~2020-04-02] VITALS: Ht 190.5 cm; Wt 96.0 kg
--- NOTE | 2020-04-02 22:38 | NUR ---
PT BLAKE. PER EMS PT HAD A SYNCOPAL EPISODE AROUND 2100 IN THE BATHROOM. PER PT'S SHE FOUND PT ON GROUND WITH EYES ROLLED IN BACK OF HEAD AND HE WAS INCOHERENT.
--- NOTE | 2020-04-02 22:38 | NUR ---
CODE NEURO CALLED ON PATIENT AT 3153.
--- NOTE | 2020-04-02 22:39 | NUR ---
PER PT'S PT HAS HX OF STROKE AND SEIZURES. PT DENIES BEING ON ANY BLOOD THINNERS. PER LAST KNOWN WELL TIME WAS 2110
--- NOTE | 2020-04-02 22:45 | NUR ---
PT TAKEN TO CT VIA RDOMENIC.
[2020-04-02 22:50] LABS: BASOPHILS % (AUTO) 1 % (0-1); EOSINOPHILS % (AUTO) 3 % (1-7); LYMPHOCYTES % (AUTO) 22 % (22-44); MEAN CORPUSCULAR HEMOGLOBIN 31.2 pg (27.5-34.5); MONOCYTES % (AUTO) 11 % (2-9); NEUTROPHILS % (AUTO) 64 % (42-75); PLATELET COUNT 176 x10^3/uL (130-400); RED BLOOD COUNT 5.19 x10^6/uL (4.38-5.82); RED CELL DISTRIBUTION WIDTH 12.3 % (9.4-14.8)
[2020-04-02 22:52] LABS: MD NO
[2020-04-02 23:03] LABS: ALANINE AMINOTRANSFERASE 38 U/L (12-78); ALBUMIN 3.2 g/dL (3.4-5.0); ANION GAP 4 mmol/L (5-15); CALCIUM 8.5 mg/dL (8.5-10.1); CHLORIDE 107 mmol/L (98-107)
[2020-04-02 23:08] LABS: ALKALINE PHOSPHATASE 104 U/L (45-117); BILIRUBIN,TOTAL 0.5 mg/dL (0.2-1.0); TOTAL PROTEIN 6.4 g/dL (6.4-8.2); TROPONIN I < 0.015 ng/mL (0.000-0.045)
[2020-04-02] MEDS ORDERED: OMNIPAQUE 350 MG/ML, 100ML BOTTLE ONE (23:11)
--- NOTE | 2020-04-02 23:19 | NUR ---
MD AWARE OF VITAL SIGNS, NO NEW ORDERS.
[2020-04-02 23:26] LABS: INTERNATIONAL NORMALIZED RATIO 1.12 (0.93-1.1); PROTHROMBIN TIME 11.9 Seconds (9.6-11.5)
--- NOTE | 2020-04-02 23:35 | NUR ---
[place], NO COMPLAINTS AT THIS TIME. PT'S AT BEDSIDE.
--- NOTE | 2020-04-03 00:43 | NUR ---
REPORT GIVEN TO [employer] MANAGERTODD, AT [facility].
[2020-04-03 00:49] VITALS: BP 159/92
--- NOTE | 2020-04-03 00:59 | NUR ---
REPORT GIVEN TO VALENTINA DE LA CRUZ DORMITORY COUNSELOR. PT ON GURNEY TO AMBULANCE.
== END 2020-04-03 01:01 | disposition short-term general hospital (02) ==
LOC: ED 22:51
DX: S06.6X0A Traumatic subarachnoid hemorrhage without loss of consciousness, initial encounter (principal); S02.0XXA Fracture of vault of skull, initial encounter for closed fracture; R41.82 Altered mental status, unspecified; I10 Essential (primary) hypertension; I48.91 Unspecified atrial fibrillation; E78.00 Pure hypercholesterolemia, unspecified; G40.909 Epilepsy, unspecified, not intractable, without status epilepticus; Z87.891 Personal history of nicotine dependence; Z96.641 Presence of right artificial hip joint; Z86.73 Personal history of transient ischemic attack (TIA), and cerebral infarction without residual deficits; W18.30XA Fall on same level, unspecified, initial encounter; Y93.89 Activity, other specified; Y92.89 Other specified places as the place of occurrence of the external cause; Y99.8 Other external cause status
CPT/HCPCS: 36415; 70450; 70496; 70498; 71045; 80053; 84484; 85025; 85610; 85730; 93005; 99291; Q9967; 82962